=== PATIENT | female | born 2000 | race Caucasian/White ===

== ENCOUNTER → 2020-12-12 | Day surgery (SDC) | payer OTHER ==
[~2020-12-12] MED LIST: COLACE 100MG C100 MG PO; IBUPROFEN600 MG PO; LEVOTHYROXINE25 MCG PO; LUPRON DEPOT11.25 MG IM; NORCO 5-325 TA1 EACH PO; NORETHINDRONE AC5 MG PO; VENTOLIN HFA 66.7 GM INH; VITAMIN D PO
== END | disposition home or self-care (01) ==
LOC: OR 10:39
DX: K31.9 Disease of stomach and duodenum, unspecified (principal); K31.A0 Gastric intestinal metaplasia, unspecified; R19.7 Diarrhea, unspecified; R11.2 Nausea with vomiting, unspecified; E66.8 Other obesity; J45.909 Unspecified asthma, uncomplicated; Z20.822 Contact with and (suspected) exposure to COVID-19
CPT/HCPCS: 84703; J1885; J2704; J7040